=== PATIENT | female | born 1995 ===

== ENCOUNTER 2025-01-11 07:38 | Emergency (ER) | payer BC, SELFPAY ==
[2025-01-11 07:45] VITALS: BP 117/81
--- NOTE | 2025-01-11 08:53 | ED.GENMED ---
History of Present Illness
General
Chief Complaint: Problems
Time Seen by Provider: 01/11/25 08:46
History of Present Illness
History of Present Illness:
29-year-old female, G3, P2 currently roughly 6 weeks gestational age presents the emergency department for evaluation of heavy vaginal bleeding beginning this morning associated with mild cramping yesterday. Not currently established with an OB.
States it feels similar to last when she had a subchorionic hemorrhage. Not on blood thinners.
Review of Systems
Review of Systems
Allergies reviewed?: Yes
All Other Systems: ROS reviewed and negative except as documented in HPI and ROS
Phy Exam
Physical Exam
Physical Exam:
GEN: Well appearing, NAD, WDWN
HEENT: Oral mucosa moist, no scleral icterus
Cardiac: Regular rate
Lung: No respiratory distress, no tachypnea
MSK: No gross deformity or injuries
Skin: Good color, no pallor or jaundice, no rashes
Neuro: AO x3, moves all extremities freely
Psych: Calm, cooperative
Course
Orders/Labs/Results
Orders:
Orders
01/11/25 08:53
US W Transvaginal Urgent
Comment:
Reason For Exam: 1st trimester bleeding
01/11/25 09:13
Type+Screen Urgent
Beta HCG Quantitative Urgent
Is this a screen?: No
Complete Blood Count/No Diff Urgent
01/11/25 10:55
Rho (D) Immune Globulin [Rhogam] 300 mcg IM ONCE ONE
01/11/25 10:59
* Blood Bank Products Urgent
Blood Bank Products: *Rhogam - Full Dose
Quantity: 300mg
Transfuse Today: Yes
Reason: Other
Other reason: Vaginal bleeding/miscarriage
01/11/25 09:13
Vital Signs
Initial and Last Documented VS:
Initial Vital Signs
Temp Pulse Resp BP Pulse Ox
97.4 F 95 18 117/81 98
01/11/25 07:45 01/11/25 07:45 01/11/25 07:45 01/11/25 07:45 01/11/25 07:45
Last Documented Vital Signs
Temp Pulse Resp BP Pulse Ox
98.5 F 62 16 113/81 100
01/11/25 11:26 01/11/25 11:26 01/11/25 11:26 01/11/25 11:26 01/11/25 11:26
Information
Weeks gestation: N/A
Location: N/A
MDM/Problems Addressed
MDM/Problems Addressed:
No IUP identified, given patient's markedly low hCG levels this likely is indicative of a spontaneous . She is encouraged to follow-up with her DIABETES EDUCATION COORDINATOR to discuss follow-up hCG testing, given RhoGAM due to Rh- status
*Critical Care Note
Total Time (30-74mins, 75-104mins- exclusive of procedures): Not Applicable
ED Attending Note
-
Portions of this chart may have been created with voice recognition software.� Occasional wrong word or��sound alike� substitutions may have occurred due to the inherent limitations of voice recognition software.
Discharge Plan
Departure
Patient Disposition: Home (Routine Discharge)
Date of Disposition: 01/11/25
Time of Disposition: 11:07
Patient with high blood pressure during this ER visit?: No
Discharge Problem:
Miscarriage, threatened, early
Instructions: Miscarriage (DC)
Prescriptions:
No Action
sennosides-docusate sodium [Stool Softener-Stimulant Laxat] 8.6-50 mg Tablet
1 tab PO DAILYPRN PRN (Reason: constipation) Qty: 10 0RF
ibuprofen 600 mg Tablet
600 mg PO Q6HPRN PRN (Reason: moderate pain/cramps) Qty: 30 0RF
acetaminophen 325 mg Tablet
650 mg PO Q4HPRN PRN (Reason: mild pain) Qty: 30 0RF
Referrals:
Wilbur Lemus, [Family Provider] -
Activity Restrictions/Additional Instructions:
Have your HCG levels repeated within 5-7 days by your primary OBGYN
Interventions
Interventions:
*Risk Screen - Suicide Last Done: 01/11/25 07:45
*General Assessment Last Done: 01/11/25 09:04
*Neglect/Abuse Screening Last Done: 01/11/25 07:45
*ED- Fall Risk Assessment Last Done: 01/11/25 09:04
*ED COVID-19 Vaccine History Last Done: 01/11/25 09:04
*Nursing Disposition Last Done: 01/11/25 11:40
ED-Female Genitourinary Assessment Last Done: 01/11/25 09:15
Discharge Date and Time
Discharge Date/Time: 01/11/25 11:40
Print Language: COMORAN
--- NOTE | 2025-01-11 09:02 | EDRN ---
Asaf Page PA in to see pt.
[2025-01-11 09:03] VITALS: BMI 20.6
[2025-01-11 09:15] VITALS: BP 110/71
[2025-01-11 09:25] LABS: Hematocrit 39.6 % (37.0-47.0); Hemoglobin 13.3 g/dL (12.0-16.0); Mean Corp Hgb Conc. 33.6 g/dL (33.0-37.0); Mean Corpuscular Volume 86.5 fL (81.0-99.0); Mean Platelet Volume 9.1 fL (7.4-10.4); Platelet Count 273 10^3/uL (130-400); Red Blood Cell Count 4.58 10^6/uL (4.20-5.40); Red Cell Dist. Width 13.5 % (11.5-14.5); White Blood Cell Count 5.6 10^3/uL (4.8-10.8)
[2025-01-11 10:08] LABS: Beta HCG Quantitative 17.34 mIU/ml
[2025-01-11 11:26] VITALS: BP 113/81
[2025-01-11] MEDS: RHOGAM 300 MCG IM (11:31)
== END 2025-01-11 11:40 | disposition home or self-care (01) ==
LOC: EMR 07:38
PROVIDERS: Physician Assistant; EMERGENCY PHYSICIAN Emergency Medicine; FAMILY PHYSICIAN Family Medicine
DX: O03.9 Complete or unspecified spontaneous abortion without complication (principal)
CPT/HCPCS: 99284; 96372; 76801; 76817; 84702; 85027; 86850; 86900; 86901; J2790